=== PATIENT | female | born 1930 | race Caucasian/White ===

== ENCOUNTER 2019-07-10 16:28 | Inpatient (IN) | payer OTHER ==
[~2019-07-10] VITALS: Ht 154.9 cm; Wt 40.8 kg
[~2019-07-10 16:28] MED LIST: AMBIEN PAK5 MG; ASA81 MG; GABAPENTIN300 M1; LIRICA; NORVASC5 MG; VASOTEC2.5 MG; ZOCOR5 MG
[2019-07-10] MEDS ORDERED: NAMENDA10 MG PO (16:34)
[2019-07-10] MEDS ORDERED: SIMVASTATIN5 MG PO (16:35)
[2019-07-10] MEDS ORDERED: BUSPIRONE HCL15 MG PO (16:35)
[2019-07-10] MEDS ORDERED: EVISTA60 MG PO (16:36)
== END 2019-07-18 12:31 | disposition home or self-care (01) | DRG 641 ==
LOC: ER 16:28 → SURH 23:59 → SEC-K 23:59 → SURH 07-11 01:44
PROVIDERS: ADMIT Internal Medicine
PROC: 0DH67UZ Insertion of Feeding Device into Stomach, Via Natural or Artificial Opening (ICD-10-PCS; 2019-07-11)
PROC: 3E0G76Z Introduction of Nutritional Substance into Upper GI, Via Natural or Artificial Opening (ICD-10-PCS; 2019-07-11)
PROC: 0DH64UZ Insertion of Feeding Device into Stomach, Percutaneous Endoscopic Approach (ICD-10-PCS; principal; 2019-07-15)
PROC: 3E0G76Z Introduction of Nutritional Substance into Upper GI, Via Natural or Artificial Opening (ICD-10-PCS; 2019-07-15)
DX: E44.0 Moderate protein-calorie malnutrition (principal); E86.0 Dehydration; E87.8 Other disorders of electrolyte and fluid balance, not elsewhere classified; I10 Essential (primary) hypertension; I70.0 Atherosclerosis of aorta; G30.0 Alzheimer's disease with early onset; F02.80 Dementia in other diseases classified elsewhere, unspecified severity, without behavioral disturbance, psychotic disturbance, mood disturbance, and anxiety; Z74.01 Bed confinement status

== ENCOUNTER 2019-07-24 15:03 | Inpatient (IN) | payer OTHER ==
[~2019-07-24] VITALS: Ht 154.9 cm; Wt 5.0 kg
[~2019-07-24 15:03] MED LIST changes: +BUSPIRONE HCL15 MG PO; +EVISTA60 MG PO; +NAMENDA10 MG PO; +SIMVASTATIN5 MG PO
--- NOTE | 2019-07-24 16:49 | NUR ---
PTE SE RECIBE POR GASTROSTOMY TUBE MALFUNCTION REFIERE FAMILIAR.
--- NOTE | 2019-07-24 18:24 | NUR ---
DR. WINKLER INTENTA PONER N[place]VAM[place]A LA GASTROSTOMIA SIN EXITO.
--- NOTE | 2019-07-24 18:58 | NUR ---
FAMILIAR Y PTE ORIENTADOS SOBRE EL TX. SE EXTRAEN MUESTRAS DE CHARLI BAJO MEDIDAS ASEPTICAS SE ROTULAN Y ENVIAN AL LABORATORIO. SE CANALIZA Y [place] IV. PTE CONSULTADA CON MEDICINA INTERNA Y CIRUGIA
== END 2019-07-27 18:39 | disposition home or self-care (01) | DRG 395 ==
LOC: ER 15:03 → MEDI 23:06 → MEDJ 07-27 10:59
PROVIDERS: ADMIT Internal Medicine
PROC: 0DP68UZ Removal of Feeding Device from Stomach, Via Natural or Artificial Opening Endoscopic (ICD-10-PCS; principal; 2019-07-26)
PROC: 0DH63UZ Insertion of Feeding Device into Stomach, Percutaneous Approach (ICD-10-PCS; 2019-07-26)
PROC: 3E0G76Z Introduction of Nutritional Substance into Upper GI, Via Natural or Artificial Opening (ICD-10-PCS; 2019-07-26)
DX: K94.23 Gastrostomy malfunction (principal); R13.19 Other dysphagia; E78.49 Other hyperlipidemia; I10 Essential (primary) hypertension; E86.0 Dehydration; F03.90 Unspecified dementia, unspecified severity, without behavioral disturbance, psychotic disturbance, mood disturbance, and anxiety